=== PATIENT | male | born 1950 | race Caucasian/White ===

== ENCOUNTER 2022-02-08 13:14 | Emergency (ER) | payer OTHER ==
[2022-02-08 13:25] VITALS: BP 146/87; PULSE 96; RESP 17; TEMP 97.4; BMI 24.7
[2022-02-08] MEDS ORDERED: ACETAMINOPHEN 500 MG TABLET (FP) PO ONE (13:52)
[2022-02-08] MEDS ORDERED: IBUPROFEN 600 MG TABLET (FP) PO ONE (13:52)
== END 2022-02-08 14:33 | disposition home or self-care (01) ==
LOC: JERFT 13:14
DX: S46.911A Strain of unspecified muscle, fascia and tendon at shoulder and upper arm level, right arm, initial encounter (principal); X50.0XXA Overexertion from strenuous movement or load, initial encounter
CPT/HCPCS: 73030-TC-RT-FY; 99283-25